=== PATIENT | male | born 1955 | race Caucasian/White ===

== ENCOUNTER 2020-11-14 07:46 | Emergency (ER) | payer OTHER ==
[~2020-11-14] VITALS: Ht 182.9 cm; Wt 82.7 kg
[2020-11-14 07:57] VITALS: BP 155/75
[2020-11-14] MEDS ORDERED: CYCL5TAB PO (08:22)
[2020-11-14] MEDS ORDERED: IBUP-1060 PO (08:22)
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
== END 2020-11-14 08:36 | disposition home or self-care (01) ==
LOC: ER 07:46
DX: G89.11 Acute pain due to trauma (principal); M62.838 Other muscle spasm; M25.511 Pain in right shoulder; M25.512 Pain in left shoulder; Z90.89 Acquired absence of other organs; V98.8XXA Other specified transport accidents, initial encounter; Y93.89 Activity, other specified; Y92.89 Other specified places as the place of occurrence of the external cause; Y99.8 Other external cause status
CPT/HCPCS: 99283